=== PATIENT | female | born 1980 | race Caucasian/White ===

== ENCOUNTER 2019-04-03 21:08 | Emergency (ER) | payer BC ==
[~2019-04-03 21:08] MED LIST: Iopamidol 370 76% 125 ML VIAL FS ONE; Sodium Chloride 0.9% 100 ML BAG ONE
--- NOTE | 2019-04-03 22:32 | CT ---
CT angiogram of chest performed with intravenous contrast enhancement with 3-D reconstructions HISTORY: Right-sided chest pain. COMPARISON: None. FINDINGS: The lungs are clear of any infiltrative process. No pleural effusions or pulmonary nodules. No significant mediastinal, hilar or axillary adenopathy. The thoracic aorta is normal in caliber. There is good pulmonary artery opacification, no CT evidence for pulmonary embolus. Visualized liver parenchyma shows no focal findings there are fatty changes noted. IMPRESSION: No CT evidence for pulmonary embolus.
== END 2019-04-03 22:50 | disposition home or self-care (01) ==
LOC: MADERS 21:08
DX: M54.6 Pain in thoracic spine (principal); E11.9 Type 2 diabetes mellitus without complications; E78.5 Hyperlipidemia, unspecified; E78.00 Pure hypercholesterolemia, unspecified; I10 Essential (primary) hypertension; F32.9 Major depressive disorder, single episode, unspecified; Z79.899 Other long term (current) drug therapy; Z79.82 Long term (current) use of aspirin; Z79.84 Long term (current) use of oral hypoglycemic drugs
CPT/HCPCS: 71275; J3490; Q9967